=== PATIENT | male | born 1975 | race African-American/Black ===

== ENCOUNTER → 2021-11-16 | Outpatient (CLI) | payer BC ==
[2021-11-16 09:13] LABS: CHLORIDE 106 mEq/L (98-107)
[2021-11-16 09:22] LABS: LDL CHOLESTEROL 72 mg/dL (5-100)
[2021-11-16 09:23] LABS: HDL CHOLESTEROL 61 mg/dL (40-59)
[2021-11-17 07:08] LABS: *CREATININE RANDOM URINE 182.9 mg/dL (Not Estab.); MICROALBUMIN RANDOM URINE 3.4 ug/mL (Not Estab.)
== END | disposition home or self-care (01) ==
LOC: LAB 07:20
PROVIDERS: ATTEND Family Medicine
DX: E11.69 Type 2 diabetes mellitus with other specified complication (principal)
CPT/HCPCS: 36415; 80053; 80061; 82043; 82570; 83036

== ENCOUNTER → 2022-02-03 | Outpatient (CLI) | payer BC ==
[2022-02-03 07:55] LABS: CHLORIDE 100 mEq/L (98-107)
== END | disposition home or self-care (01) ==
LOC: LAB 07:11
PROVIDERS: ATTEND Family Medicine
DX: E11.69 Type 2 diabetes mellitus with other specified complication (principal)
CPT/HCPCS: 36415; 80053; 83036

== ENCOUNTER → 2023-07-18 | Outpatient (CLI) | payer BC ==
[2023-07-18 09:51] LABS: CHLORIDE 103 mEq/L (98-107); INDEX HEMOLYSI 1 (1-3); INDEX ICTERIC 1 (1-4); INDEX LIPEMIC 1 (1-3); SODIUM 138 mEq/L (136-145)
[2023-07-18 09:58] LABS: ALANINE AMINOTRANSFERASE 19 IU/L (13-61); ALBUMIN 3.9 g/dL (3.4-5.0); ASPARTATE AMINOTRANSFERASE 13 IU/L (15-37); BILIRUBIN TOTAL 0.8 mg/dL (0.1-1.0); CALCIUM 9.1 mg/dL (8.5-10.1); CARBON DIOXIDE 29 mEq/L (21-32); CHOLESTEROL 185 mg/dL (<200); CREATININE 0.9 mg/dL (0.6-1.3); GLUCOSE 179 mg/dL (70-105); HDL CHOLESTEROL 82 mg/dL (40-59); LDL CHOLESTEROL 96 mg/dL (5-100); PROTEIN TOTAL 7.5 g/dL (6.0-8.3); TRIGLYCERIDE 100 mg/dL (0-150); UREA NITROGEN BLOOD 17 mg/dL (7-21)
[2023-07-19 08:08] LABS: *CREATININE RANDOM URINE 105.5 mg/dL (Not Estab.); MICROALBUMIN RANDOM URINE <3.0 ug/mL (Not Estab.); MICROALBUMIN/CREATININE RATIO <3 mg/g creat (0-29)
== END | disposition home or self-care (01) ==
LOC: LAB 09:06
PROVIDERS: ATTEND Family Medicine
DX: E11.69 Type 2 diabetes mellitus with other specified complication (principal)
CPT/HCPCS: 36415; 80053; 80061; 82043; 82570; 83036